=== PATIENT | male | born 1980 | race Asian ===

== ENCOUNTER 2019-01-18 19:09 | Emergency (ER) | payer BC, OTHER ==
--- NOTE | 2019-01-18 19:25 | EDPHY ---
H & P Time Seen by Provider: 01/18/19 19:16 HPI/ROS: CHIEF COMPLAINT: Right thumb laceration HISTORY OF PRESENT ILLNESS: 20 min prior to arrival cut on the sharp can lid of his spaghetti-o's dinner. No weakness or numbness distally and no foreign body sensation. REVIEW OF SYSTEMS: Negative PAST MEDICAL HISTORY: Depression Social history: Primary care is Dr. Collins in [place] General Appearance: Alert and conversant, cooperative. 1 cm laceration on the volar radial side of the right thumb just proximal to the IP joint. Normal flexion extension, normal capillary refill. Normal 2 point discrimination distally. He thinks he likely has tetanus vaccine up-to-date but isn't 100% sure, will check with his primary care on Sunday and will get updated if he is not current , less than 10 years. Emergency Department course/MDM: Procedure: Laceration repair. Verbal consent was obtained from the patient. The 1 cm laceration on the right thumb was anesthetized using 0.5% bupivacaine with out epinephrine. The wound was irrigated with standard emergency department protocol, draped and explored. There were no deep structures involved. No tendon injury was identified. No foreign body found. The wound was repaired with 5 0 Prolene. The wound repair was simple. Excellent hemostasis was obtained. Wound care instructions were discussed and the patient was warned regarding scarring. The procedure was performed by myself. Smoking Status: Light smoker Constitutional: Initial Vital Signs Temperature (C) 36.7 C 01/18/19 19:14 Heart Rate 72 01/18/19 19:14 Respiratory Rate 16 01/18/19 19:14 Blood Pressure 137/108 H 01/18/19 19:14 O2 Sat (%) 96 01/18/19 19:14 O2 Delivery Mode Room Air Allergies/Adverse Reactions: No Known Allergies Allergy (Unverified 01/18/19 19:14) Home Medications: Medication Instructions Recorded Abilify 01/18/19 Wellbutrin Sr 01/18/19 MDM/Departure - Depart Disposition: Home, Routine, Self-Care Clinical Impression: Laceration of right thumb Qualifiers: Encounter type: initial encounter Damage to nail status: without damage Foreign body presence: without foreign body Qualified Code(s): S61.011A - Laceration without foreign body of right thumb without damage to nail, initial encounter Condition: Good Instructions: Laceration (ED) Additional Instructions: Wound Care Follow-Up: Removal of sutures in 10 days. Suture removal is complimentary in uncomplicated cases. Infection or abnormal findings would require reevaluation by the MD. In that case, you may be billed. Check with your doctor on Sunday if you it had a tetanus vaccine booster within the last 10 years, if not get 1 on Sunday or Sunday. Referrals: Dr. Karina [Other] - As per Instructions (Check Sunday with your doctor about whether tetanus vaccine status is up to date.)
[2019-01-18 19:41] VITALS: BP 121/82
== END 2019-01-18 19:41 | disposition home or self-care (01) ==
PROC: 0HQFXZZ Repair Right Hand Skin, External Approach (ICD-10-PCS; principal; 2019-01-18)
DX: S61.011A Laceration without foreign body of right thumb without damage to nail, initial encounter (principal); W26.8XXA Contact with other sharp object(s), not elsewhere classified, initial encounter